=== PATIENT | female | born 1980 | race Caucasian/White ===

== ENCOUNTER 2017-01-03 14:58 | Emergency (ER) | payer MEDICAID, MEDICARE ==
[2017-01-03 15:27] VITALS: RESP 18; TEMP 97.1
[2017-01-03 15:30] LABS: BASOPHILS % (AUTO) 1 % (0-3); EOSINOPHILS % (AUTO) 7 % (0-9); HEMATOCRIT 42 % (35-47); MEAN CORPUSCULAR HGB CONC 34.7 gm/dl (32.0-36.0); MEAN CORPUSCULAR VOLUME 91 fL (81-99); NEUTROPHILS % (AUTO) 57.5 % (37-80)
[2017-01-03 15:32] LABS: APPEARANCE,URINE Slightly Cloudy; BILIRUBIN,URINE NEGATIVE (NEGATIVE); COLOR,URINE Orange; GLUCOSE, URINE (UA) NEGATIVE (NEGATIVE); KETONES,URINE NEGATIVE (NEGATIVE); NITRATE,URINE POSITIVE (NEGATIVE); OCCULT BLOOD,URINE NEGATIVE (NEG-TRACE); PH,URINE 5.5; UROBILINOGEN,URINE 0.2 (0.2-1.0 EU)
[2017-01-03] MEDS ORDERED: SODIUM CHLORIDE 0.9% 1000ML 1,000 ML IV ONE (15:34)
[2017-01-03] MEDS ORDERED: KETOROLAC TROMETHAMINE 30 MG/ML SOL IV ONE (15:34)
[2017-01-03] MEDS ORDERED: LORAZEPAM 2 MG/ML SOL IV ONE ×2 (15:34→16:39)
[2017-01-03] MEDS ORDERED: ONDANSETRON HCL 4 MG/2 ML SOL IV ONE (15:34)
[2017-01-03] MEDS ORDERED: KETOROLAC TROMETHAMINE 30 MG/ML SOL ONE (15:50)
[2017-01-03] MEDS ORDERED: ONDANSETRON HCL 4 MG/2 ML SOL ONE (15:50)
[2017-01-03] MEDS ORDERED: LORAZEPAM 2 MG/ML SOL ONE ×2 (15:51→16:41)
[2017-01-03 15:54] LABS: LEUKOCYTE ESTERASE ,URINE TRACE (NEGATIVE); RBC,URINE 0-1 (0-3AV/HPF); WBC,URINE 0-3 (0-5AV/HPF)
[2017-01-03 16:32] LABS: ALBUMIN 3.8 gm/dl (3.4-5.0); CALCIUM 8.3 mg/dl (8.5-10.1)
[2017-01-03] MEDS ORDERED: HYDROMORPHONE HCL 2 MG/ML 1 ML SOL IV ONE (16:39)
[2017-01-03] MEDS ORDERED: HYDROMORPHONE HCL 2 MG/ML 1 ML SOL ONE (16:41)
[2017-01-03 17:47] VITALS: BP 100/48; PULSE 101; O2SAT 97
== END 2017-01-03 18:58 | disposition home or self-care (01) | DRG 694 ==
LOC: ED 14:58
DX: N20.1 Calculus of ureter (principal); F41.9 Anxiety disorder, unspecified
CPT/HCPCS: 36415; 74177; 80053; 81001; 84703; 85025; 99285; J1170; J1885; J2060; J2405; Q9967

== ENCOUNTER 2017-01-07 23:41 | Emergency (ER) | payer MEDICARE ==
[2017-01-08] MEDS ORDERED: KETOROLAC TROMETHAMINE 30 MG/ML SOL IM ONE (00:51)
[2017-01-08] MEDS ORDERED: LORAZEPAM 0.5 MG TAB PO ONE (00:52)
[2017-01-08 01:02] VITALS: TEMP 97.6
[2017-01-08] MEDS ORDERED: KETOROLAC TROMETHAMINE 30 MG/ML SOL ONE (01:02)
[2017-01-08] MEDS ORDERED: LORAZEPAM 0.5 MG TAB ONE (01:02)
[2017-01-08 01:39] VITALS: O2SAT 97
[2017-01-08 01:40] VITALS: BP 99/59; PULSE 78; RESP 16
== END 2017-01-08 01:24 | disposition home or self-care (01) | DRG 694 ==
LOC: ED 23:41
DX: N20.0 Calculus of kidney (principal); M54.5 Low back pain
CPT/HCPCS: 99283; J1885

== ENCOUNTER 2018-07-18 13:44 | Emergency (ER) | payer MEDICARE ==
[2018-07-18 14:00] VITALS: RESP 20
[2018-07-18 14:59] LABS: BASOPHILS % (AUTO) 0 % (0-3); EOSINOPHILS % (AUTO) 0 % (0-9); HEMATOCRIT 39 % (35-47); HEMOGLOBIN 12.7 gm/dl (12.0-15.5); MEAN CORPUSCULAR HGB CONC 32.2 gm/dl (32.0-36.0); MEAN CORPUSCULAR VOLUME 93 fL (81-99); NEUTROPHILS % (AUTO) 87.3 % (37-80)
[2018-07-18 15:02] LABS: ALBUMIN 3.6 gm/dl (3.4-5.0); BILIRUBIN,TOTAL 0.3 mg/dl (0.2-1.0); CALCIUM 8.4 mg/dl (8.5-10.1); CARBON DIOXIDE 23.5 mEq/L (21-32); CREATININE 0.63 mg/dl (0.60-1.00); POTASSIUM 3.6 mMol/L (3.5-5.1); TOTAL PROTEIN 6.8 gm/dl (6.4-8.2)
[2018-07-18 16:22] LABS: APPEARANCE,URINE Clear; BILIRUBIN,URINE NEGATIVE (NEGATIVE); COLOR,URINE Light yellow; GLUCOSE, URINE (UA) NEGATIVE (NEGATIVE); KETONES,URINE NEGATIVE (NEGATIVE); LEUKOCYTE ESTERASE ,URINE NEGATIVE (NEGATIVE); NITRATE,URINE NEGATIVE (NEGATIVE); OCCULT BLOOD,URINE NEGATIVE (NEG-TRACE); PH,URINE 5.5; UROBILINOGEN,URINE 0.2 (0.2-1.0 EU)
[2018-07-18 16:27] LABS: BACTERIA RARE (< 1+); CRYSTALS NEGATIVE (0-3 AVE/HPF); RBC,URINE 0-2 (0-3AV/HPF); WBC,URINE 0-2 (0-5AV/HPF)
[2018-07-18 16:35] VITALS: BP 134/66; PULSE 84; TEMP 96.9; O2SAT 99
[2018-07-18] MEDS ORDERED: BISACODYL 10 MG SUP PR ONE ×2 (17:18→17:21)
== END 2018-07-18 18:05 | disposition home or self-care (01) | DRG 392 ==
LOC: ED 13:44
DX: K59.00 Constipation, unspecified (principal); R11.2 Nausea with vomiting, unspecified
CPT/HCPCS: 36415; 74177; 80053; 81001; 82150; 85025; 99282; 99284; A9270-GY

== ENCOUNTER 2019-01-12 05:37 | Emergency (ER) | payer OTHER ==
[2019-01-12] MEDS ORDERED: ONDANSETRON 4 MG ODT BU ONE (06:02)
[2019-01-12] MEDS ORDERED: ONDANSETRON 4 MG ODT ONE (06:03)
[2019-01-12 06:27] VITALS: RESP 16; TEMP 97.6
[2019-01-12] MEDS ORDERED: TRAMADOL HYDROCHLORIDE 50 MG TAB PO ONE (06:40)
[2019-01-12] MEDS ORDERED: TRAMADOL HYDROCHLORIDE 50 MG TAB ONE (07:05)
[2019-01-12] MEDS: SODIUM CHLORIDE 0.9% 1000ML 1,000 ML IV SCH ×3 (07:15→08:16)
[2019-01-12 07:35] LABS: BASOPHILS % (AUTO) 1 % (0-3); EOSINOPHILS % (AUTO) 5 % (0-9); HEMATOCRIT 37 % (35-47); HEMOGLOBIN 12.4 gm/dl (12.0-15.5); LYMPHOCYTES % (AUTO) 32.1 % (10-50); MEAN CORPUSCULAR HEMOGLOBIN 30.5 pg (27.0-32.0); MEAN CORPUSCULAR HGB CONC 33.1 gm/dl (32.0-36.0); MEAN CORPUSCULAR VOLUME 92 fL (81-99); MONOCYTES % (AUTO) 7.5 % (0-12); NEUTROPHILS % (AUTO) 54.5 % (37-80)
[2019-01-12 07:45] LABS: ALBUMIN 3.3 gm/dl (3.4-5.0); BILIRUBIN,TOTAL 0.4 mg/dl (0.2-1.0); CALCIUM 8.3 mg/dl (8.5-10.1); CARBON DIOXIDE 25.9 mEq/L (21-32); CREATININE 0.78 mg/dl (0.60-1.00); POTASSIUM 3.8 mMol/L (3.5-5.1); TOTAL PROTEIN 6.3 gm/dl (6.4-8.2)
[2019-01-12 07:55] LABS: INR 0.95 (0.86-1.12)
[2019-01-12 08:25] VITALS: BP 98/53; PULSE 56; O2SAT 98
[2019-01-12] MEDS ORDERED: PROCHLORPERAZINE EDISYLATE 5 MG/ML SOL IV ONE (09:12)
[2019-01-12] MEDS ORDERED: PROCHLORPERAZINE EDISYLATE 5 MG/ML SOL ONE (09:27)
== END 2019-01-12 09:46 | disposition home or self-care (01) | DRG 90 ==
LOC: ED 05:37
DX: S06.0X9A Concussion with loss of consciousness of unspecified duration, initial encounter (principal); R11.10 Vomiting, unspecified; R51 Headache; R41.0 Disorientation, unspecified
CPT/HCPCS: 36415; 70450; 80053; 85025; 85610; 96365; 96374; 99283; 99284; J0780; A9270-GY